=== PATIENT | male | born 1945 | race African-American/Black ===

== ENCOUNTER 2022-06-01 10:42 | Inpatient (IN) | payer OTHER ==
[~2022-06-01] VITALS: Ht 175.3 cm; Wt 68.0 kg
[2022-06-01 13:02] LABS: BASOPHILS % 0.9 % (0.0-2.0); EOSINOPHILS % 3.5 % (0.0-5.0); HEMATOCRIT. 35.8 % (42.0-52.0); HEMOGLOBIN. 12.2 g/dL (14.0-18.0); LYMPHOCYTES % 19.2 % (20.0-50.0); MEAN CORPUSCULAR HEMOGLOBIN 33.7 pg (28.0-32.0); MEAN CORPUSCULAR VOLUME 98.5 fL (80.0-94.0); MEAN PLATELET VOLUME 8.6 fl (7.4-10.4); MONOCYTES % 6.6 % (2.0-8.0); NEUTROPHILS % 69.8 % (40.0-76.0); PLATELET 139 x1000/uL (130-400); RED BLOOD CELL COUNT 3.63 mill/uL (4.7-6.1); RED CELL DISTRIBUTION WIDTH 14.4 % (11.6-14.6)
[2022-06-01 13:13] LABS: CHLORIDE 104 mEq/L (98-107)
[2022-06-01] MEDS ORDERED: MIDAZOLAM HCL 2 MG/2 ML VIAL IV ONE (15:15)
[2022-06-01] MEDS ORDERED: MAGNESIUM/ALUMINUM HYDROXIDE/SIMETHICONE 30ML UDC PO PRN (15:45)
[2022-06-01] MEDS ORDERED: ONDANSETRON HCL 4MG/2ML INJ IV PRN (15:45)
[2022-06-01] MEDS ORDERED: IPRATROPIUM/ALBUTEROL 0.5-3(2.5)MG/3ML NEB HHN PRN (15:45)
[2022-06-01 16:35] VITALS: BP 0/0
[2022-06-01 17:34] LABS: VITAMIN B12 SERUM 562 pg/mL (211-911)
[2022-06-01 20:00] VITALS: BP 145/94
[2022-06-01] MEDS: ENOXAPARIN 40MG/0.4ML SYR SUBCUT SCH (21:00)
[2022-06-02] VITALS: BP 156/96
[2022-06-02 04:00] VITALS: BP 152/97
[2022-06-02 12:02] VITALS: BP 120/81
[2022-06-02 16:00] VITALS: BP 147/78
[2022-06-02] MEDS: LORAZEPAM 2MG/ML CPJ IV PRN (17:03)
[2022-06-02 20:00] VITALS: BP 161/97
[2022-06-02] MEDS ORDERED: IOHEXOL-350 100 ML BOTTLE ONE (20:53)
[2022-06-02] MEDS: ENOXAPARIN 40MG/0.4ML SYR SUBCUT SCH ×2 (21:20→21:24)
[2022-06-02] MEDS: CLONIDINE 0.1MG TABLET PO PRN (21:20)
[2022-06-02] MEDS: QUETIAPINE FUMARATE 50MG TABLET PO SCH (21:20)
[2022-06-03] VITALS (7 sets, daily range): BP systolic 112–149; BP diastolic 52–100
[2022-06-03] MEDS: IPRATROPIUM/ALBUTEROL 0.5-3(2.5)MG/3ML NEB HHN SCH ×4 (02:46→21:21)
[2022-06-03] MEDS: QUETIAPINE FUMARATE 50MG TABLET PO SCH ×2 (12:21→20:20)
[2022-06-03] MEDS: PREDNISONE 20MG TABLET PO SCH (12:22)
[2022-06-03] MEDS: LORAZEPAM 2MG/ML CPJ IV PRN (12:47)
[2022-06-03] MEDS: CLONIDINE 0.1MG TABLET PO PRN (20:20)
[2022-06-04] VITALS: BP 125/77
[2022-06-04] MEDS: IPRATROPIUM/ALBUTEROL 0.5-3(2.5)MG/3ML NEB HHN SCH ×4 (01:30→20:34)
[2022-06-04 04:00] VITALS: BP 127/77
[2022-06-04 08:00] VITALS: BP 145/75
[2022-06-04] MEDS: QUETIAPINE FUMARATE 50MG TABLET PO SCH ×2 (09:58→20:32)
[2022-06-04] MEDS: LORAZEPAM 2MG/ML CPJ IV PRN ×2 (09:58→20:21)
[2022-06-04] MEDS: PREDNISONE 20MG TABLET PO SCH (09:58)
[2022-06-04 12:00] VITALS: BP 140/91
[2022-06-04] MEDS: HALOPERIDOL LACTATE 5MG/ML VIAL IM PRN (12:19)
[2022-06-04 16:00] VITALS: BP 109/65
[2022-06-04] MEDS ORDERED: OLANZAPINE 10 MG/VIAL IM SCH (16:00)
[2022-06-04 20:00] VITALS: BP 152/98
[2022-06-04] MEDS: ENOXAPARIN 40MG/0.4ML SYR SUBCUT SCH (20:32)
[2022-06-04] MEDS ORDERED: OLANZAPINE 10 MG/VIAL IM NR (23:30)
[2022-06-05] VITALS: BP 139/91
[2022-06-05] MEDS: IPRATROPIUM/ALBUTEROL 0.5-3(2.5)MG/3ML NEB HHN SCH ×4 (02:31→21:14)
[2022-06-05 04:00] VITALS: BP 140/99
[2022-06-05 08:00] VITALS: BP 163/92
[2022-06-05] MEDS: QUETIAPINE FUMARATE 50MG TABLET PO SCH ×2 (09:47→20:22)
[2022-06-05] MEDS: PREDNISONE 20MG TABLET PO SCH (09:47)
[2022-06-05] MEDS: LORAZEPAM 2MG/ML CPJ IV PRN ×2 (10:51→20:22)
[2022-06-05 12:00] VITALS: BP 110/77
[2022-06-05 16:00] VITALS: BP 127/80
[2022-06-05 20:00] VITALS: BP 130/84
[2022-06-05] MEDS: ENOXAPARIN 40MG/0.4ML SYR SUBCUT SCH (20:22)
[2022-06-06] VITALS: BP 124/70
[2022-06-06] MEDS: IPRATROPIUM/ALBUTEROL 0.5-3(2.5)MG/3ML NEB HHN SCH ×4 (01:52→21:27)
[2022-06-06 04:00] VITALS: BP 136/71
[2022-06-06 08:00] VITALS: BP 151/89
[2022-06-06] MEDS: QUETIAPINE FUMARATE 50MG TABLET PO SCH ×2 (09:26→20:30)
[2022-06-06] MEDS: PREDNISONE 20MG TABLET PO SCH (09:26)
[2022-06-06] MEDS: LORAZEPAM 2MG/ML CPJ IV PRN ×2 (09:27→20:31)
[2022-06-06 12:00] VITALS: BP 146/89
[2022-06-06 16:00] VITALS: BP 156/95
[2022-06-06 20:00] VITALS: BP 129/66
[2022-06-06] MEDS: ENOXAPARIN 40MG/0.4ML SYR SUBCUT SCH (20:31)
[2022-06-07] VITALS: BP 124/76
[2022-06-07] MEDS: IPRATROPIUM/ALBUTEROL 0.5-3(2.5)MG/3ML NEB HHN SCH ×5 (02:01→21:28)
[2022-06-07 04:00] VITALS: BP 114/70
[2022-06-07 08:00] VITALS: BP 136/90
[2022-06-07] MEDS: PREDNISONE 20MG TABLET PO SCH (10:37)
[2022-06-07] MEDS: QUETIAPINE FUMARATE 50MG TABLET PO SCH ×2 (10:37→21:11)
[2022-06-07] MEDS: DOCUSATE SODIUM 100MG CAPSULE PO PRN (10:38)
[2022-06-07] MEDS: HALOPERIDOL LACTATE 5MG/ML VIAL IM PRN (10:38)
[2022-06-07 12:00] VITALS: BP 133/74
[2022-06-07 16:20] VITALS: BP 127/69
[2022-06-07 20:00] VITALS: BP 145/85
[2022-06-07] MEDS: ENOXAPARIN 40MG/0.4ML SYR SUBCUT SCH (21:10)
[2022-06-08] VITALS: BP 111/70
[2022-06-08] MEDS: IPRATROPIUM/ALBUTEROL 0.5-3(2.5)MG/3ML NEB HHN SCH ×4 (01:20→19:57)
[2022-06-08 04:00] VITALS: BP 115/71
[2022-06-08 08:00] VITALS: BP 171/104
[2022-06-08] MEDS: PREDNISONE 20MG TABLET PO SCH (09:00)
[2022-06-08] MEDS: QUETIAPINE FUMARATE 50MG TABLET PO SCH ×2 (09:05→20:50)
[2022-06-08 12:00] VITALS: BP 106/74
[2022-06-08 16:00] VITALS: BP 111/76
[2022-06-08 20:00] VITALS: BP 110/74
[2022-06-08] MEDS: ENOXAPARIN 40MG/0.4ML SYR SUBCUT SCH (20:51)
[2022-06-09] VITALS: BP 117/86
[2022-06-09] MEDS: IPRATROPIUM/ALBUTEROL 0.5-3(2.5)MG/3ML NEB HHN SCH ×4 (00:47→20:27)
[2022-06-09] MEDS: HALOPERIDOL LACTATE 5MG/ML VIAL IM PRN ×2 (02:24→22:35)
[2022-06-09 04:00] VITALS: BP 142/90
[2022-06-09 08:00] VITALS: BP 138/84
[2022-06-09] MEDS: QUETIAPINE FUMARATE 50MG TABLET PO SCH ×2 (09:38→20:45)
[2022-06-09] MEDS: DOCUSATE SODIUM 100MG CAPSULE PO PRN (09:39)
[2022-06-09] MEDS: PREDNISONE 20MG TABLET PO SCH (09:39)
[2022-06-09] MEDS: ACETAMINOPHEN 325MG TABLET PO PRN ×2 (11:21→20:45)
[2022-06-09 20:00] VITALS: BP 113/89
[2022-06-09] MEDS: ENOXAPARIN 40MG/0.4ML SYR SUBCUT SCH (20:45)
[2022-06-10] VITALS: BP 110/82
[2022-06-10 08:00] VITALS: BP 118/83
[2022-06-10] MEDS: IPRATROPIUM/ALBUTEROL 0.5-3(2.5)MG/3ML NEB HHN SCH ×2 (08:39→14:37)
[2022-06-10] MEDS: PREDNISONE 20MG TABLET PO SCH (11:14)
[2022-06-10] MEDS: QUETIAPINE FUMARATE 50MG TABLET PO SCH ×2 (11:15→20:54)
[2022-06-10 12:00] VITALS: BP 107/70
[2022-06-10 16:00] VITALS: BP 142/82
[2022-06-10 20:00] VITALS: BP 125/85
[2022-06-10] MEDS: ENOXAPARIN 40MG/0.4ML SYR SUBCUT SCH (20:56)
[2022-06-11] VITALS: BP 122/82
[2022-06-11 04:00] VITALS: BP 124/80
[2022-06-11 08:00] VITALS: BP 130/85
[2022-06-11] MEDS: PREDNISONE 20MG TABLET PO SCH (08:25)
[2022-06-11] MEDS: QUETIAPINE FUMARATE 50MG TABLET PO SCH ×2 (08:25→21:53)
[2022-06-11] MEDS: IPRATROPIUM/ALBUTEROL 0.5-3(2.5)MG/3ML NEB HHN SCH ×3 (10:32→21:14)
[2022-06-11] MEDS: HALOPERIDOL LACTATE 5MG/ML VIAL IM PRN (11:36)
[2022-06-11 12:00] VITALS: BP 132/82
[2022-06-11 16:00] VITALS: BP 112/80
[2022-06-11 17:54] LABS: BASOPHILS % 0.3 % (0.0-2.0); EOSINOPHILS % 0.3 % (0.0-5.0); HEMATOCRIT. 39.8 % (42.0-52.0); HEMOGLOBIN. 13.9 g/dL (14.0-18.0); MEAN CORPUSCULAR HEMOGLOBIN 33.4 pg (28.0-32.0); MEAN CORPUSCULAR VOLUME 95.7 fL (80.0-94.0); MEAN PLATELET VOLUME 9.8 fl (7.4-10.4); MONOCYTES % 5.4 % (2.0-8.0); PLATELET 161 x1000/uL (130-400); RED BLOOD CELL COUNT 4.16 mill/uL (4.7-6.1); RED CELL DISTRIBUTION WIDTH 14.1 % (11.6-14.6)
[2022-06-11 18:06] LABS: CHLORIDE 98 mEq/L (98-107)
[2022-06-11] MEDS: ENOXAPARIN 40MG/0.4ML SYR SUBCUT SCH (21:53)
[2022-06-12] VITALS (7 sets, daily range): BP systolic 99–125; BP diastolic 49–79
[2022-06-12] MEDS: IPRATROPIUM/ALBUTEROL 0.5-3(2.5)MG/3ML NEB HHN SCH ×5 (02:40→21:21)
[2022-06-12] MEDS: PREDNISONE 20MG TABLET PO SCH (09:07)
[2022-06-12] MEDS: QUETIAPINE FUMARATE 50MG TABLET PO SCH ×2 (09:07→20:42)
[2022-06-12] MEDS: RISPERIDONE 0.5MG TABLET PO SCH (13:48)
[2022-06-12] MEDS: ENOXAPARIN 40MG/0.4ML SYR SUBCUT SCH (20:42)
[2022-06-13] VITALS: BP 129/82
[2022-06-13] MEDS: IPRATROPIUM/ALBUTEROL 0.5-3(2.5)MG/3ML NEB HHN SCH ×4 (01:20→20:50)
[2022-06-13 04:00] VITALS: BP 119/72
[2022-06-13] MEDS: RISPERIDONE 0.5MG TABLET PO SCH (08:34)
[2022-06-13] MEDS: PREDNISONE 20MG TABLET PO SCH (08:34)
[2022-06-13] MEDS: QUETIAPINE FUMARATE 50MG TABLET PO SCH ×2 (08:35→21:00)
[2022-06-13 12:00] VITALS: BP 121/73
[2022-06-13 16:00] VITALS: BP 119/71
[2022-06-13 20:00] VITALS: BP 120/88
[2022-06-13] MEDS: ENOXAPARIN 40MG/0.4ML SYR SUBCUT SCH (21:00)
[2022-06-13] MEDS: HALOPERIDOL LACTATE 5MG/ML VIAL IM PRN (21:26)
[2022-06-14] VITALS: BP 141/81
[2022-06-14] MEDS: IPRATROPIUM/ALBUTEROL 0.5-3(2.5)MG/3ML NEB HHN SCH ×4 (00:55→20:43)
[2022-06-14 04:00] VITALS: BP 141/87
[2022-06-14 08:00] VITALS: BP 106/64
[2022-06-14] MEDS: PREDNISONE 20MG TABLET PO SCH (10:16)
[2022-06-14] MEDS: RISPERIDONE 0.5MG TABLET PO SCH (10:16)
[2022-06-14] MEDS: QUETIAPINE FUMARATE 50MG TABLET PO SCH ×2 (10:20→20:25)
[2022-06-14 12:00] VITALS: BP 119/62
[2022-06-14 16:00] VITALS: BP 109/59
[2022-06-14 20:00] VITALS: BP 108/66
[2022-06-14] MEDS: ENOXAPARIN 40MG/0.4ML SYR SUBCUT SCH (20:26)
[2022-06-15] VITALS: BP 115/76
[2022-06-15 04:00] VITALS: BP 124/78
[2022-06-15 08:00] VITALS: BP 120/67
[2022-06-15] MEDS: IPRATROPIUM/ALBUTEROL 0.5-3(2.5)MG/3ML NEB HHN SCH ×3 (08:19→21:03)
[2022-06-15] MEDS: ACETAMINOPHEN 325MG TABLET PO PRN (09:57)
[2022-06-15] MEDS: QUETIAPINE FUMARATE 50MG TABLET PO SCH ×2 (09:57→20:58)
[2022-06-15] MEDS: PREDNISONE 20MG TABLET PO SCH (09:57)
[2022-06-15] MEDS: DOCUSATE SODIUM 100MG CAPSULE PO PRN (09:57)
[2022-06-15] MEDS: RISPERIDONE 0.5MG TABLET PO SCH (09:57)
[2022-06-15 12:00] VITALS: BP 91/52
[2022-06-15 16:00] VITALS: BP 115/64
[2022-06-15 20:00] VITALS: BP 122/71
[2022-06-15] MEDS: ENOXAPARIN 40MG/0.4ML SYR SUBCUT SCH (20:58)
[2022-06-16] MEDS: IPRATROPIUM/ALBUTEROL 0.5-3(2.5)MG/3ML NEB HHN SCH ×4 (01:41→20:09)
[2022-06-16] MEDS: RISPERIDONE 0.5MG TABLET PO SCH (09:00)
[2022-06-16] MEDS: QUETIAPINE FUMARATE 50MG TABLET PO SCH ×2 (09:00→21:00)
[2022-06-16] MEDS: PREDNISONE 20MG TABLET PO SCH (09:00)
[2022-06-16] MEDS: MEMANTINE HCL 5MG TABLET PO SCH ×2 (09:00→21:00)
[2022-06-16 12:00] VITALS: BP 116/63
[2022-06-16 16:00] VITALS: BP 119/60
[2022-06-16 20:00] VITALS: BP 124/68
[2022-06-16] MEDS: ENOXAPARIN 40MG/0.4ML SYR SUBCUT SCH (21:00)
[2022-06-17] VITALS: BP 144/79
[2022-06-17] MEDS: IPRATROPIUM/ALBUTEROL 0.5-3(2.5)MG/3ML NEB HHN SCH ×4 (01:12→20:38)
[2022-06-17 04:00] VITALS: BP 110/66
[2022-06-17 08:00] VITALS: BP 128/76
[2022-06-17] MEDS: QUETIAPINE FUMARATE 50MG TABLET PO SCH ×2 (10:17→20:18)
[2022-06-17] MEDS: MEMANTINE HCL 5MG TABLET PO SCH ×2 (10:17→20:18)
[2022-06-17] MEDS: PREDNISONE 20MG TABLET PO SCH (10:17)
[2022-06-17] MEDS: RISPERIDONE 0.5MG TABLET PO SCH (10:18)
[2022-06-17 12:00] VITALS: BP 102/69
[2022-06-17 16:00] VITALS: BP 103/73
[2022-06-17] MEDS: HALOPERIDOL LACTATE 5MG/ML VIAL IM PRN (18:41)
[2022-06-17] MEDS: LORAZEPAM 2MG/ML CPJ IV PRN (20:18)
[2022-06-17] MEDS: ENOXAPARIN 40MG/0.4ML SYR SUBCUT SCH (20:24)
[2022-06-17 20:50] VITALS: BP 107/61
[2022-06-18] VITALS: BP 113/76
[2022-06-18] MEDS: LORAZEPAM 2MG/ML CPJ IV PRN (00:47)
[2022-06-18 04:00] VITALS: BP 122/60
[2022-06-18] MEDS ORDERED: LORAZEPAM 2MG/ML CPJ IV PRN (08:15)
[2022-06-18] MEDS ORDERED: RISPERIDONE 0.5MG TABLET PO SCH (09:00)
== END 2022-06-18 08:17 | DRG 202 ==
LOC: ER 10:42 → 8WST 15:33 → EDBEDREQ 15:36 → EDBEDREQTM 15:36 → 6EST 06-02 09:36
PROVIDERS: ADMIT Internal Medicine Pulmonary Disease; ATTEND Internal Medicine Pulmonary Disease
PROC: 4A00X4Z Measurement of Central Nervous Electrical Activity, External Approach (ICD-10-PCS; 2022-06-16)
PROC: 5A12012 Performance of Cardiac Output, Single, Manual (ICD-10-PCS; principal; 2022-06-18)
PROC: 06HY33Z Insertion of Infusion Device into Lower Vein, Percutaneous Approach (ICD-10-PCS; 2022-06-18)
PROC: 0BH17EZ Insertion of Endotracheal Airway into Trachea, Via Natural or Artificial Opening (ICD-10-PCS; 2022-06-18)
PROC: 079T3ZX Drainage of Bone Marrow, Percutaneous Approach, Diagnostic (ICD-10-PCS; 2022-06-18)
DX: J45.901 Unspecified asthma with (acute) exacerbation (principal); E87.0 Hyperosmolality and hypernatremia; D72.819 Decreased white blood cell count, unspecified; D64.9 Anemia, unspecified; Z20.822 Contact with and (suspected) exposure to COVID-19; J44.9 Chronic obstructive pulmonary disease, unspecified; F03.90 Unspecified dementia, unspecified severity, without behavioral disturbance, psychotic disturbance, mood disturbance, and anxiety; Z78.1 Physical restraint status; Z86.73 Personal history of transient ischemic attack (TIA), and cerebral infarction without residual deficits
CPT/HCPCS: 36415; 71045; 71260; 80048; 80053; 82607; 82746; 82962; 83880; 84443; 84484; 85025; 87426; 87804; 93005; 94640; 95816; 97162; 97166; 97530; 97535; 99285; C9803; J1630; J1650; J2060; J3490; J7512; Q9967